=== PATIENT | male | born 1950 | race Caucasian/White ===

== ENCOUNTER 2020-02-15 17:09 | Outpatient (REF) | payer OTHER, SELFPAY ==
[2020-02-15 18:36] LABS: Hematocrit 42.5 % (42-52); Hemoglobin 14.5 g/dl (14.0-18.0)
[2020-02-15 19:26] LABS: Ferritin 357 ng/mL (20-250)
== END 2020-02-15 17:10 | disposition home or self-care (01) ==
LOC: HO.BBR 17:09
PROVIDERS: PCP Internal Medicine; Visit Provider Internal Medicine
DX: E83.110 Hereditary hemochromatosis (principal)
CPT/HCPCS: 36415; 82728; 85014; 85018; 99195

== ENCOUNTER 2020-03-21 17:05 | Outpatient (REF) | payer OTHER, SELFPAY | END 2020-03-21 17:06 | disposition home or self-care (01) | LOC: HO.BBR 17:05 | PROVIDERS: Visit Provider Internal Medicine | DX: Z13.89 Encounter for screening for other disorder (principal) ==

== ENCOUNTER 2020-03-21 18:06 | Outpatient (REF) | payer OTHER, SELFPAY ==
[2020-03-21 19:08] LABS: SARS COV2 IgG Negative (Negative)
== END 2020-03-21 18:07 | disposition home or self-care (01) ==
LOC: HO.LNC 18:06
PROVIDERS: Visit Provider Pathology Anatomic Pathology & Clinical Pathology
DX: Z20.828 Contact with and (suspected) exposure to other viral communicable diseases (principal)
CPT/HCPCS: 86769

== ENCOUNTER 2020-04-23 15:41 | Outpatient (REF) | payer OTHER, SELFPAY | END 2020-04-23 15:42 | disposition home or self-care (01) | LOC: HO.BBR 15:41 | PROVIDERS: Visit Provider Internal Medicine | DX: Z13.89 Encounter for screening for other disorder (principal) ==

== ENCOUNTER 2020-05-31 15:41 | Outpatient (REF) | payer OTHER, SELFPAY ==
[2020-05-31 16:56] LABS: Ferritin 207 ng/mL (20-250)
== END 2020-05-31 15:42 | disposition home or self-care (01) ==
LOC: HO.BBR 15:41
PROVIDERS: Visit Provider Internal Medicine
DX: E83.110 Hereditary hemochromatosis (principal)
CPT/HCPCS: 36415; 82728

== ENCOUNTER 2020-07-12 11:58 | Outpatient (REF) | payer OTHER, SELFPAY ==
[2020-07-12 14:10] LABS: Ferritin 228 ng/mL (20-250)
== END 2020-07-12 11:59 | disposition home or self-care (01) ==
LOC: HO.BBR 11:58
PROVIDERS: Visit Provider Internal Medicine
DX: E83.110 Hereditary hemochromatosis (principal)
CPT/HCPCS: 36415; 82728

== ENCOUNTER 2020-08-27 15:06 | Outpatient (REF) | payer OTHER, SELFPAY ==
[2020-08-27 17:06] LABS: Ferritin 158 ng/mL (20-250)
== END 2020-08-27 15:07 | disposition home or self-care (01) ==
LOC: HO.BBR 15:06
PROVIDERS: Visit Provider Internal Medicine
DX: E83.110 Hereditary hemochromatosis (principal)
CPT/HCPCS: 36415; 82728

== ENCOUNTER 2020-09-24 14:11 | Outpatient (REF) | payer OTHER, SELFPAY | END 2020-09-24 14:12 | disposition home or self-care (01) | LOC: HO.BBR 14:11 | PROVIDERS: Visit Provider Internal Medicine | DX: Z13.89 Encounter for screening for other disorder (principal) ==

== ENCOUNTER 2020-10-28 14:29 | Outpatient (REF) | payer OTHER, SELFPAY ==
[2020-10-28 16:17] LABS: Ferritin 96 ng/mL (20-250)
== END 2020-10-28 14:30 | disposition home or self-care (01) ==
LOC: HO.BBR 14:29
PROVIDERS: Visit Provider Internal Medicine
DX: E83.110 Hereditary hemochromatosis (principal)
CPT/HCPCS: 36415; 82728

== ENCOUNTER → 2020-11-18 08:11 | Outpatient (BNV) | payer OTHER, SELFPAY | PROVIDERS: PCP Internal Medicine; Visit Provider Internal Medicine | DX: E83.110 Hereditary hemochromatosis (principal) | CPT/HCPCS: 99213; 99214 ==

== ENCOUNTER 2020-11-28 10:36 | Outpatient (REF) | payer OTHER, SELFPAY | END 2020-11-28 10:37 | disposition home or self-care (01) | LOC: HO.BBR 10:36 | PROVIDERS: Visit Provider Internal Medicine | DX: Z13.89 Encounter for screening for other disorder (principal) ==

== ENCOUNTER 2020-12-31 15:15 | Outpatient (REF) | payer OTHER, SELFPAY | END 2020-12-31 15:16 | disposition home or self-care (01) | LOC: HO.BBR 15:15 | PROVIDERS: PCP Internal Medicine; Visit Provider Internal Medicine | DX: Z13.89 Encounter for screening for other disorder (principal) ==

== ENCOUNTER 2021-02-06 15:17 | Outpatient (REF) | payer OTHER, SELFPAY | END 2021-02-06 15:18 | disposition home or self-care (01) | LOC: HO.BBR 15:17 | PROVIDERS: Visit Provider Internal Medicine | DX: Z13.89 Encounter for screening for other disorder (principal) ==

== ENCOUNTER 2021-03-11 15:44 | Outpatient (REF) | payer OTHER, SELFPAY | END 2021-03-11 15:45 | disposition home or self-care (01) | LOC: HO.BBR 15:44 | PROVIDERS: Visit Provider Internal Medicine | DX: Z13.89 Encounter for screening for other disorder (principal) ==

== ENCOUNTER 2021-04-16 09:18 | Outpatient (REF) | payer OTHER, SELFPAY | END 2021-04-16 09:19 | disposition home or self-care (01) | LOC: HO.BBR 09:18 | PROVIDERS: Visit Provider Internal Medicine | DX: Z13.89 Encounter for screening for other disorder (principal) ==

== ENCOUNTER 2021-05-21 08:28 | Outpatient (REF) | payer OTHER, SELFPAY | END 2021-05-21 08:29 | disposition home or self-care (01) | LOC: HO.BBR 08:28 | PROVIDERS: Visit Provider Internal Medicine | DX: Z13.89 Encounter for screening for other disorder (principal) ==

== ENCOUNTER 2021-06-18 08:40 | Outpatient (REF) | payer OTHER, SELFPAY | END 2021-06-18 08:41 | disposition home or self-care (01) | LOC: HO.BBR 08:40 | PROVIDERS: Visit Provider Internal Medicine | DX: Z13.89 Encounter for screening for other disorder (principal) ==

== ENCOUNTER 2021-07-17 08:21 | Outpatient (REF) | payer OTHER, SELFPAY | END 2021-07-17 08:22 | disposition home or self-care (01) | LOC: HO.BBR 08:21 | PROVIDERS: Visit Provider Internal Medicine | DX: Z13.89 Encounter for screening for other disorder (principal) ==

== ENCOUNTER 2021-08-19 08:54 | Outpatient (REF) | payer OTHER, SELFPAY | END 2021-08-19 08:55 | disposition home or self-care (01) | LOC: HO.BBR 08:54 | PROVIDERS: Visit Provider Internal Medicine | DX: Z13.89 Encounter for screening for other disorder (principal) ==

== ENCOUNTER 2021-09-16 09:15 | Outpatient (REF) | payer OTHER, SELFPAY | END 2021-09-16 09:16 | disposition home or self-care (01) | LOC: HO.BBR 09:15 | PROVIDERS: Visit Provider Internal Medicine | DX: Z13.89 Encounter for screening for other disorder (principal) ==

== ENCOUNTER 2021-10-14 09:12 | Outpatient (REF) | payer OTHER, SELFPAY | END 2021-10-14 09:13 | disposition home or self-care (01) | LOC: HO.BBR 09:12 | PROVIDERS: Visit Provider Internal Medicine | DX: Z13.89 Encounter for screening for other disorder (principal) ==

== ENCOUNTER 2022-02-10 10:06 | Outpatient (REF) | payer OTHER, SELFPAY | END 2022-02-10 10:07 | disposition home or self-care (01) | LOC: HO.BBR 10:06 | PROVIDERS: Visit Provider Internal Medicine | DX: Z13.89 Encounter for screening for other disorder (principal) ==

== ENCOUNTER 2022-05-15 09:35 | Outpatient (REF) | payer OTHER, SELFPAY | END 2022-05-15 09:36 | disposition home or self-care (01) | LOC: HO.BBR 09:35 | PROVIDERS: Visit Provider Internal Medicine | DX: Z13.89 Encounter for screening for other disorder (principal) ==

== ENCOUNTER 2022-12-09 12:09 | Outpatient (REF) | payer OTHER, SELFPAY | END 2022-12-09 12:10 | disposition home or self-care (01) | LOC: HO.BBR 12:09 | PROVIDERS: PCP Internal Medicine; Visit Provider Internal Medicine | DX: Z13.89 Encounter for screening for other disorder (principal) ==

== ENCOUNTER 2023-01-20 10:19 | Outpatient (REF) | payer OTHER, SELFPAY | END 2023-01-20 10:20 | disposition home or self-care (01) | LOC: HO.BBR 10:19 | PROVIDERS: PCP Internal Medicine; Visit Provider Internal Medicine | DX: Z13.89 Encounter for screening for other disorder (principal) ==

== ENCOUNTER 2023-03-03 10:26 | Outpatient (REF) | payer OTHER, SELFPAY | END 2023-03-03 10:27 | disposition home or self-care (01) | LOC: HO.BBR 10:26 | PROVIDERS: PCP Internal Medicine; Visit Provider Internal Medicine | DX: Z13.89 Encounter for screening for other disorder (principal) ==

== ENCOUNTER 2023-04-28 11:04 | Outpatient (REF) | payer OTHER, SELFPAY | END 2023-04-28 11:05 | disposition home or self-care (01) | LOC: HO.BBR 11:04 | PROVIDERS: PCP Internal Medicine; Visit Provider Internal Medicine | DX: Z13.89 Encounter for screening for other disorder (principal) ==

== ENCOUNTER 2023-08-05 09:04 | Outpatient (REF) | payer OTHER, SELFPAY | END 2023-08-05 09:05 | disposition home or self-care (01) | LOC: HO.BBR 09:04 | PROVIDERS: PCP Internal Medicine; Visit Provider Internal Medicine | DX: Z13.89 Encounter for screening for other disorder (principal) ==

== ENCOUNTER 2023-11-04 09:13 | Outpatient (REF) | payer OTHER, MEDICARE, SELFPAY | END 2023-11-04 09:14 | disposition home or self-care (01) | LOC: HO.BBR 09:13 | PROVIDERS: PCP Internal Medicine; Visit Provider Internal Medicine | DX: Z13.89 Encounter for screening for other disorder (principal) ==

== ENCOUNTER 2024-02-04 10:49 | Outpatient (REF) | payer MEDICARE, OTHER, SELFPAY | END 2024-02-04 10:50 | disposition home or self-care (01) | LOC: HO.BBR 10:49 | PROVIDERS: PCP Internal Medicine; Visit Provider Internal Medicine | DX: Z13.89 Encounter for screening for other disorder (principal) ==

== ENCOUNTER 2024-05-10 10:05 | Outpatient (REF) | payer OTHER, MEDICARE, SELFPAY ==
--- OUTSIDE RECORDS SUMMARY | 2024-05-10 11:03 | XMS_ITS | Clinical Summary ---
Author Organization [facility] [employer] [facility] Address [address] [facility] [place] [address] Care Team Providers Care Lavatory Attendant Name Role Phone Unavailable Primary Care Provider Unavailabl e Social History Tobacco Use Types Packs/Day Years Used Date Smoking Tobacco: Never Assessed Sex and Gender Information Value Date Recorded Sex Assigned at Not on file Legal Sex Male 9:32 AM EST Gender Identity Not on file Sexual Orientation Not on file Plan of Treatment Health Maintenance Due Date Last Done Comments Colorectal Cancer: COLONOSCO PY Screening every 10 yrs (or Modifier) 1950 Depression: Screening Annual ly using PHQ-2/9 in Adults 18 yrs or above (or HM Modifier)([facility]) 02/20/1970 Hepatitis C Virus Infection in Adolescents and Adults: Screening (or Modifier) ([facility]) 02/20/1970 [facility] Screening Reminder: Edna clark for all adults ([facility]) 02/20/1970 Tobacco Smoking Cessation: i n Adults excluding Women: Behavioral and Pharmacotherapy Interventions ([facility]) 02/20/1970 DTaP/Tdap/Td Vaccines ([facility]) (1 - Tdap) 02/20/1971 Lipid Screening: Every 5 yrs for Men aged 35+ (or HM Modifier) ([facility]) 1988 Colorectal Cancer Screening 45 -75 Yrs (or HM Modifier ) 02/20/1997 Colorectal Cancer: FLEXIBLE SIGMOIDOSCOPY Screening every 5 yrs 02/20/1997 Colorectal Cancer: Fecal Imm unochemical Test (FIT) Annually [facility] 02/20/1997 Colorectal Cancer: High-sens itivity gFOBT Screening Annually [facility] 02/20/1997 Colorectal Cancer: Stool Col oguard Screening every 3 yrs 02/20/1997 Colorectal Cancer:CT Colonography Screening every 5 yr s 02/20/1997 Zoster/Shingles Vaccine Seri es Screening: Adults aged 18+ yrs (or HM Modifiers)([facility]) (1 of 2) 02/20/2002 RSV Vaccines (1 - 1-dose 60+ series) 2012 Pneumococcal Vaccination Scr eening: Patients 65+ yrs of age ([facility]) (1 of 1 - PCV) 02/20/2017 Flu Vaccination: Ages 65+: Y early High Dose Recommended (or Modifier)([facility]) 11/18/2023 COVID-19 Vaccine Screening: Initial Series and Booster Status ([facility]) (2023- season) 2023 [employer] Not on file Insurance [facility]
--- OUTSIDE RECORDS SUMMARY | 2024-05-10 11:03 | XMS_ITS | Clinical Summary ---
Author Organization [address] Building Address [address] [place] [address] [place] Phone Care Team Providers Care Biodiesel Operations Manager Name Role Phone Colin Christianson MD Primary Care Provider Allergies No known active allergies Medications Medication Sig Dispensed Refills Start Date End Date Status lisinopriL (PRINIVIL,ZESTRIL) 20 mg tabletIndications:Esse ntial (primary) hypertension TAKE 1 TABLET BY MOUTH EVERY DAY 90 tablet 1 02/28/2024 Active Active Problems Problem Noted Date Diagnosed Date Detached retina, right 10/13/2018 Overview (04/01/2024): August 2018; left 20 years prior [facility] Essential hypertension 01/06/2017 Hemochromatosis 03/20/2015 Insomnia 02/06/2013 Encounters Date Type Department Care Team Description 02/17/2024 [facility] [address] [facility] [place], [place] [phone] Tran Abebe [place] Forms/questionnaires (Conversion-My Chart Message, exercise form) from Last 3 Months Immunizations Name Administration Dates Next Due Influenza Quadravalent, MDCK , 0.5ml, with preservative (Flucelvax) 6mo and older 01/20/2017 Influenza trivalent, 0.5mL ( Fluad) 65yo and older 02/15/2024,01/06/2021 Influenza trivalent, 0.5mL, preservative free (Fluarix; FluLaval; Fluzone) ages 6mo and older (Afluria) 3 years and older 03/20/2015,02/06/2013 Influenza, Unspecified 03/19/2022 Pfizer SARS-CoV-2 COVID-19, mRNA, LNP-S, preservative free 02/10/2021,07/16/2020,06/25/2020 Pneumococcal conjugate 20 va lent (Prevnar 20, PCV 20) 2mo and older 07/14/2022 Td Tetanus diptheria (Tdvax) 7yo and older 02/14 Tdap Tetanus diptheria acell ular pertussis (Boostrix; Adacel) 7yo and older 08/09/2013 Surgical History Surgery Date Site/Laterality Comments TONSILLECTOMY PROCEDURE: HISTORICAL TONSILLECTOMY OTHER SURGICAL HISTORY PROCEDURE: REPAIR DETACHED RETINA Medical History Medical History Date Comments Detached retina, right 10/13/2018 DX:Detach ed retina, right; COMMENT: August 2018; left 20 years prior [facility] Essential hypertension 01/06/2017 DX:Essent ial hypertension Hemochromatosis 03/20/2015 DX:Hemochromatos is Insomnia 02/06/2013 DX:Insomnia Family History Medical History Relation Name Comments Stroke Brother Other: Other Father seizures after 70. dementia Mental illness Mother depression. d ementia Relation Name Status Comments Brother Alive Father Mother Sister 1 Alive Sister 2 Alive Son 1 Alive Son 2 Alive Social History Tobacco Use Types Packs/Day Years Used Date Smoking Tobacco: Never Smokeless Tobacco: Never Alcohol Use Standard Drinks/Week Comments Yes 0 (1 standard drink = 0.6 oz pur e alcohol) Sex and Gender Information Value Date Recorded Sex Assigned at Not on file Gender Identity Not on file Sexual Orientation Not on file Job Start Date Occupation Industry Not on file Not on file Not on file Obstetrics History Last Filed Vital Signs Vital Sign Reading Time Taken Comments Blood Pressure 138/82 02/15/2024 9:36 AM EDT Pulse 72 02/15/2024 9:36 AM EDT Temperature - - Respiratory Rate - - Oxygen Saturation - - Inhaled Oxygen Concentration - - Weight 88.7 kg (195 lb 8 oz) 02/15/2024 9:36 AM EDT Height 177.8 cm (5' 10 ) 02/15/2024 9:36 AM EDT Body Mass Index 28.05 02/15/2024 9:36 AM EDT Plan of Treatment Upcoming Encounters Date Type Department Care Team (Late st Contact Info) Description 08/15/2024 11:30 AM EDT Office Visit Internal Medicine - [address] [phone] Colin Christianson MD [address] [place] [id number] Health Maintenance Due Date Last Done Comments Zoster Vaccines (1 of 2) 02/20/2002 Depression Screening 03/28/2022 Falls Risk Assessment 03/28/2022 Hepatitis C Screening 03/28/2022 Medicare Annual Wellness Visit 03/28/2022 Social Influencers of Health Screening 03/28/2022 COVID-19 Vaccine ( season) 2023 02/10/2021, 07/16/2020, 06/25/2020 Hypertension/CHF/CAD Annual BMP Blood Test 02/14/2025 02/15/2024 Colorectal Cancer Screening: Colonoscopy 05/14/2025 05/12/2022 RSV Immunization Patients 60+ Years Old (1 - 1-dose 75+ series) 02/20/2027 Cholesterol Screening (Lipid Panel) 02/14/2029 02/15/2024 DTaP,Tdap,and Td Vaccines (3 - Td or Tdap) 02/14/2034 02/15/2024, 08/09/2013 Pneumococcal Vaccine: 65+ Years Completed 07/14/2022 Influenza Vaccine Completed 02/15/2024, , 01/06/2021, Additional history exists HIB Vaccines Aged Out No longer eligi ble based on patient's age to complete this topic HPV Vaccines Aged Out No longer eligi ble based on patient's age to complete this topic Hepatitis A Vaccines Aged Out No long er eligible based on patient's age to complete this topic Hepatitis B Vaccines Aged Out No long er eligible based on patient's age to complete this topic IPV Vaccines Aged Out No longer eligi ble based on patient's age to complete this topic MMR Vaccines Aged Out No longer eligi ble based on patient's age to complete this topic Meningococcal ACWY Vaccine Aged Out N o longer eligible based on patient's age to complete this topic RSV Immunization Patients Under 20 months Aged Out No longer eligible based on patient's age to complete this topic Varicella Vaccines Aged Out No longer eligible based on patient's age to complete this topic Care Teams Biodiesel Operations Manager Relationship Specialty Start Date End Date Colin Christianson MD PCP - General Internal Medicine 04/20/24
== END 2024-05-10 10:06 | disposition home or self-care (01) ==
LOC: HO.BBR 10:05
PROVIDERS: PCP Internal Medicine; Visit Provider Internal Medicine
DX: Z13.89 Encounter for screening for other disorder (principal)

== ENCOUNTER 2024-08-16 09:11 | Outpatient (REF) | payer OTHER, MEDICARE, SELFPAY ==
--- OUTSIDE RECORDS SUMMARY | 2024-08-16 09:42 | XMS_ITS | Clinical Summary ---
Author Organization [address] Building Address [address] [place] [address] [place] [phone] Phone Care Team Providers Care Assurance Manager Insurance Name Role Phone Colin Christianson MD Primary Care Provider [phone] Allergies No known active allergies Medications lisinopriL (PRINIVIL,ZESTRIL ) 20 mg tabletIndications :Essential (primary) hypertension TAKE 1 TABLET BY MOUTH EVERY DAY 90 tablet 1 02/28/2024 Active Active Problems Problem Noted Date Diagnosed Date Detached retina, right 10/13/2018 Overview (04/01/2024): August 2018; left 20 years prior [facility] Essential hypertension 01/06/2017 Hemochromatosis 03/20/2015 Insomnia 02/06/2013 Encounters Date Type Department Care Team Description 08/15/2024 11:30 AM EDT Office Visit Internal Medicine - [facility] [address] [place] [phone] Colin Christianson MD Hearing loss of left ear, unspecified hearing loss type (Primary Dx); Stiffness of hip joint, unspecified laterality; Essential hypertension; Screening PSA (prostate specific antigen) from Last 3 Months Immunizations Name Administration [...] COMMENT: August 2018; left 20 years prior [facility] Essential hypertension 01/06/2017 DX:Essent ial [...] Date Smoking Tobacco: Never Smokeless Tobacco: Never Tobacco Cessation:Counseling Given: Not Answered Alcohol Use Standard Drinks/Week Comments Yes 0 (1 standard drink = 0.6 oz pur e alcohol) Housing Instability Answer Date Recorde d Are you worried that in the next 2 months you may not have stable housing? No 08/15/2024 Food Access & Nutrition Answer Date Rec orded Do you have access to a vari ety of food including fruits and vegetables? Yes 08/15/2024 Access to Healthcare Answer Date Record ed Within the last 3 months, ho w many times did you visit the emergency department for your medical care? 0 08/15/2024 Health Literacy Answer Date Recorded How often do you need to hav e someone help you when you read instructions, pamphlets, or other written material from your doctor or pharmacy? Never 08/15/2024 Caregiver: How often do you need to have someone help you when you read instructions, pamphlets, or other written material from your doctor or pharmacy? Not on file 08/15/2024 Financial Risk Answer Date Recorded How hard is it for you to pa y for the very basics like food, housing, medical care, and air conditioning / heating? Not very hard 08/15/2024 Transportation Answer Date Recorded Has the lack of transportati on kept you from meetings, work, or from getting things needed for daily living? No Has the lack of transportati on kept you from medical appointments or from getting medications? No 08/15/2024 Social Isolation Answer Date Recorded How often do you feel lonely or isolated from th ose around you? Rarely 08/15/2024 Food Risk Answer Date Recorded Within the past 12 months we worried whether our food would run out before we got money to buy more. Never true 08/15/2024 Within the past 12 months th e food we bought just didn't last and we didn't have money to get more. Never true 08/15/2024 Dependent Care Answer Date Recorded Do you need help finding or paying for care for your loved ones. For example, early childhood worker or elderly care for an older adult? No 08/15/2024 Education Answer Date Recorded Do you think completing more education or training, like finishing a GED, going to college, or learning a trade, would be helpful for you? N/A 08/15/2024 Employment and Income Answer Date Recor ded During the last four weeks, have you been actively looking for work? No 08/15/2024 Living Situation Answer Date Recorded What is your living situation? 0 08/15/2024 Sex and Gender Information Value Date Recorded Sex Assigned at Not on file Legal Sex Male 12:08 PM EST Gender Identity Not on file Sexual Orientation Not on file Obstetrics History Last Filed Vital Signs Vital Sign Reading Time Taken Comments Blood Pressure 142/78 08/15/2024 11:23 AM EDT Pulse 68 08/15/2024 11:23 AM EDT Temperature - - Respiratory Rate - - Oxygen Saturation - - Inhaled Oxygen Concentration - - Weight 88.9 kg (195 lb 14.4 oz) 025 11:23 AM EDT Height 177.8 cm (5' 10 ) 08/15/2024 11: 23 AM EDT Body Mass Index 28.11 08/15/2024 11:23 AM EDT Plan of Treatment Upcoming Encounters Date Type Department Care Team (Late st Contact Info) Description 08/17/2025 11:30 AM EDT Office Visit Internal Medicine - [address] [phone] Colin Christianson MD [address] [place] [phone] Health Maintenance Due Date Last Done Comments Hepatitis C Screening 03/28/2022 COVID-19 Vaccine ( season) 2023 04/17/2023, 11/10/2021, 02/10/2021, Additional history exists Colorectal Cancer Screening: Colonoscopy 05/14/2025 05/12/2022 Depression Screening 08/15/2025 08/15/2024 Falls Risk Assessment 08/15/2025 08/15/2024 Hypertension/CHF/CAD Annual BMP Blood Test 08/15/2025 08/15/2024, 02/15/2024 Medicare Annual Wellness Visit 08/15/2025 08/15/2024 Social Influencers of Health Screening 08/15/2025 08/15/2024 Cholesterol Screening (Lipid Panel) 08/15/2029 08/15/2024, 02/15/2024 DTaP,Tdap,and Td Vaccines (3 - Td or Tdap) 02/14/2034 02/15/2024, 08/09/2013 Pneumococcal Vaccine: 50+ Years Completed 07/14/2022 RSV Immunization Adult Patients Completed 04/17/2023 Zoster Vaccines Completed 11/17/2023, 08/20/2023 Influenza Vaccine Completed 02/15/2024, , 03/19/2022, Additional history exists HIB Vaccines Aged Out [...] patient's age to complete this topic Meningococcal B Vaccine Aged Out No l onger eligible based on patient's age to complete this topic RSV Immunization Patients Under 20 months Aged Out No longer eligible based on patient's age to complete this topic Varicella Vaccines Aged Out No longer eligible based on patient's age to complete this topic Procedures Procedure Name Priority Date/Time Associated Diagnosis Comments LIPID PANEL WITH REFLEX TO DIRECT LDL Routine 08/15/2024 12:10 PM EDT Essential hypertension ALANINE AMINOTRANSFERASE Routine 12:10 PM EDT Essential hypertension ASPARTATE AMINOTRANSFERASE Routine 08/15/2024 12:10 PM EDT Essential hypertension BASIC METABOLIC PANEL Routine 08/15/2024 12:10 PM EDT Essential hypertension from Last 3 Months Results * Lipid panel with reflex to direct LDL (08/15/2024 12:10 PM EDT) Cholesterol 134 0 - 200 mg/dL LAB CHEMISTRY METHOD 08/15/2024 2:54 PM EDT [facility] Triglycerides 93 0 - 150 mg/dL LAB CHEMISTRY METHOD 08/15/2024 2:54 PM EDT [facility] HDL 50 >=40 mg/dL LAB CHEMISTRY METHOD 08/15/2024 2:54 PM EDT [facility] LDL Calculated 65 0 - 100 mg/dL LAB CHEMISTRY METHOD 08/15/2024 2:54 PM EDT [facility] VLDL Cholesterol Naeem 18.6 mg/dL LAB CHEMISTRY METHOD 08/15/2024 2:54 PM EDT [facility] Non HDL Chol. (LDL+VLDL) 84 <145 mg/dL LAB CHEMISTRY METHOD 08/15/2024 2:54 PM EDT [facility] Chol/HDL Ratio 2.7 0.0 - 4.4 LAB CHEMISTRY METHOD 08/15/2024 2:54 PM EDT [facility] Blood Venous blood specimen / Unknown Venipuncture / Unknown 08/15/2024 12:10 PM EDT 08/15/2024 12:10 PM EDT Colin Christianson MD LAB BLOOD ORDERABLES Final Res ult Performing Organization Address [facility]/ZIP Co de Phone Number [facility] [address] [place] [address], [place] [phone] * Alanine aminotransferase (08/15/2024 12:10 PM EDT) ALT (SGPT) 27 10 - 60 unit/L LAB CHEMISTRY METHOD 08/15/2024 2:54 PM EDT [facility] Blood Venous blood specimen / Unknown Venipuncture / Unknown 08/15/2024 12:10 PM EDT 08/15/2024 12:10 PM EDT Colin Christianson MD LAB BLOOD ORDERABLES Final Res ult [facility] [address] [place] [address], [place] [phone] * Aspartate aminotransferase (08/15/2024 12:10 PM EDT) AST (SGOT) 16 10 - 42 unit/L LAB CHEMISTRY METHOD 08/15/2024 2:16 PM EDT [facility] Blood Venous blood specimen / Unknown Venipuncture / Unknown 08/15/2024 12:10 PM EDT 08/15/2024 12:10 PM EDT us Colin Christianson MD LAB BLOOD ORDERABLES Final Res ult [facility] [address] [place] [address], [place] [phone] * Basic metabolic panel (08/15/2024 12:10 PM EDT) Sodium 142 133 - 145 mmol/L LAB CHEMISTRY METHOD 08/15/2024 2:54 PM EDT [facility] Potassium 4.3 3.5 - 5.5 mmol/L LAB CHEMISTRY METHOD 08/15/2024 2:54 PM EDT [facility] Chloride 104 96 - 110 mmol/L LAB CHEMISTRY METHOD 08/15/2024 2:54 PM [facility] CO2 30 21 - 32 mmol/L LAB CHEMISTRY METHOD 08/15/2024 2:54 PM T [facility] Anion Gap 8 3 - 11 LAB CHEMISTRY METHOD 08/15/2024 2:54 PM [facility] Glucose 75 70 - 100 mg/dL LAB CHEMISTRY METHOD 08/15/2024 2:54 PM [facility] BUN 20 5 - 25 mg/dL LAB CHEMISTRY METHOD 08/15/2024 2:54 PM [facility] Creatinine 0.87 0.70 - 1.30 mg/dL LAB CHEMISTRY METHOD 08/15/2024 2:54 PM [facility] eGFR 92 >=60 mL/min/1. 73m2 LAB CHEMISTRY METHOD 08/15/2024 2:54 PM T [facility] Comment:Calculation based on the??Chronic Kidney Disease Epidemiology Collaboration (CKD-EPI) equation refit??without adjustment for race. BUN/Creatinine Ratio 23.0 LAB CHEMISTRY METHOD 08/15/2024 2:54 PM T [facility] Calcium 9.8 8.5 - 10.5 mg/dL LAB CHEMISTRY METHOD 08/15/2024 2:54 PM EDT [facility] Blood Venous blood specimen / Unknown Venipuncture / Unknown 08/15/2024 12:10 PM EDT 08/15/2024 12:10 PM EDT us Colin Christianson MD LAB BLOOD ORDERABLES Final Res ult [facility] [address] [place] [address], [place] [phone] from Last 3 Months Insurance MEDICARE [facility] Care Teams Assurance Manager Insurance Relationship Specialty Start Date End Date Colin Christianson MD [address] [place] [phone] PCP - General Internal Medicine 04/20/24
--- OUTSIDE RECORDS SUMMARY | 2024-08-16 09:42 | XMS_ITS | Encounter Summary ---
Author [place] [address] Care Team Providers Care Accounts Receivable Collector Name Role Phone Colin Christianson MD Primary Care Provider [phone] Reason for Referral * Consultation (Routine) - Authorized Specialty Diagnoses / Procedures Referred By Christopher olivera Referred To Contact Physical Therapy Diagnoses Stiffness of hip joint, unspecified laterality Colin Christianson MD [address] [place] [address] Phone: tel: fax: Referral ID Status Reason Start Date Expiration Date Visits Requested Visits Authorized [id number] Authorized Specialty Services Required 08/15/2024 08/15/2025 1 1 * Consultation (Routine) - Closed Specialty Diagnoses / Procedures Referred By Christopher olivera Referred To Contact Audiology Diagnoses Hearing loss of left ear, unspecified hearing loss type Colin Christianson MD [address] [place] [phone] Phone: tel: fax: [facility] [address] [facility], [address] [place], [place] Phone: tel: Referral ID Status Reason Start Date Expiration Date V isits Requested Visits Authorized [id number] Closed Specialty Services Required 08/15/2024 08/15/2025 1 1 Reason for Visit * Reason Comments Medicare Annual Wellness Visit Initial a wv Encounter Details Date Type Department Care Team (Late st Contact Info) Description 08/15/2024 11:30 AM EDT Office Visit Internal Medicine - [address] [phone] Colin Christianson MD [address] [place] [id number] Hearing loss of left ear, unspecified hearing loss type (Primary Dx); Stiffness of hip joint, unspecified laterality; Essential hypertension; Screening PSA (prostate specific antigen) Social History Tobacco Use Types Packs/Day Years [...] care for your loved ones. For example, child care associate or elderly care for an older adult? [...] on file Sexual Orientation Not on file documented as of this encounter Last Filed Vital Signs Vital Sign Reading [...] Mass Index 28.11 08/15/2024 11:23 AM EDT documented in this encounter Progress Notes * Colin Christianson MD - 08/15/2024 11:30 AM EDT Medicare Annual Wellness Visit Note Patient Name: Jack Rushing Date of : 1950 Race: White Ethnicity: Not Hispan/Lat Date of Service: 08/15/2024 Jack is a 74 y.o. male presenting for Medicare Annual Wellness Visit Initial (awv) History of Present Illness he patient presents for evaluation of hearing loss, blood pressure management, neck stiffness, hamstring tightness, and sleep disturbance. A history of hearing impairment is noted, attributed to frequent exposure to loud rock concerts during his youth. Recently, an exacerbation of this condition has been observed, particularly in the left ear. Persistent tinnitus is reported, although hearing remains generally adequate unless there issignificant ambient noise. A complimentary hearing test was conducted at [facility]. Blood pressure readings have been within normal limits today, although home monitoring is not performed. Neck stiffness continues to be an issue, for which chiropractic treatment is sought. Hamstring tightness is reported, believed to be related to prolonged sitting in a recliner. 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 Interest in a referral to physical therapy is expressed. Changes in sleep patterns are acknowledged, attributed to aging and lifestyle factors. 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 Comprehensive Medical and Social History: Patient Active Problem List Diagnosis Detached retina, right Essential hypertension Hemochromatosis Insomnia No Known Allergies Current Outpatient Medications Medication Sig Dispense Refill lisinopriL (PRINIVIL,ZESTRIL) 20 mg tablet TAKE 1 TABLET BY MOUTH EVERY DAY 90 tablet 1 No current facility-administered medications for this visit. Past Medical History: Diagnosis Date Detached retina, right 10/13/2018 DX:Detached retina, right; COMMENT: August 2018; left 20 years prior [facility] Essential hypertension 01/06/2017 DX:Essential hypertension Hemochromatosis 03/20/2015 DX:Hemochromatosis Insomnia 02/06/2013 DX:Insomnia Past Surgical History: Procedure Laterality Date OTHER SURGICAL HISTORY PROCEDURE: REPAIR DETACHED RETINA TONSILLECTOMY PROCEDURE: HISTORICAL TONSILLECTOMY Social History Socioeconomic History Marital status: Spouse name: None Number of children: None Years of education: None Highest education level: None Occupational History None Tobacco Use Smoking status: Never Smokeless tobacco: Never Substance and Sexual Activity Alcohol use: Yes Drug use: No Sexual activity: None Other Topics Concern None Social History Narrative None Family History Problem Relation Name Age of Onset Stroke Brother 50.00 Mental illness Mother depression. dementia Other (Other: Other) Father seizures after 70. dementia Immunizations: Immunization History Administered Date(s) Administered COVID-19 (Moderna/Spikevax) 12yo and older 04/17/2023 Influenza Quadravalent, MDCK, 0.5ml, with preservative (Flucelvax) 6mo and older 01/20/2017 Influenza trivalent, 0.5mL (Fluad) 65yo and older 01/06/2021, 02/15/2024 Influenza trivalent, 0.5mL, preservative free (Fluarix; FluLaval; Fluzone) ages 6mo and older (Afluria) 3 years and older 02/06/2013, 03/20/2015 Influenza, Unspecified 03/19/2022 Pfizer (ages 12 & older) SARS-CoV-2 COVID-19, mRNA, LNP-S, tucker-sucrose, preservative free 11/10/2021 Pfizer SARS-CoV-2 COVID-19, mRNA, LNP-S, preservative free 06/25/2020, 07/16/2020, 02/10/2021 Pneumococcal conjugate 20 valent (Prevnar 20, PCV 20) 2mo and older 07/14/2022 Td Tetanus diptheria (Tdvax) 7yo and older 02/15/2024 Tdap Tetanus diptheria acellular pertussis (Boostrix; Adacel) 7yo and older 08/09/2013 Hospitalization in the last year: Has not been hospitalized in last year Current Providers and Suppliers: Patient Care Team: Colin Christianson MD as PCP - General (Internal Medicine) Patient does not have/use current medical supplier Risk Assessments: Cognitive Function Assessment Mini-Cognitive screening performed, results reviewed Clock Drawing Test: Normal Word Recall: Three Words Mini Cog Score: 5 Mini Cog Results: Negative screen for dementia Depression Screening (PHQ2/9): Depression Screening Over the last 2 weeks, how often have you been bothered by little interest or pleasure in doing things?: (Patient-Rptd) (P) Not at all Over the last 2 weeks, how often have you been bothered by feeling down, depressed, or hopeless?: (Patient-Rptd) (P) Not at all Depression Risk: (Patient-Rptd) (P) 0 PHQ9 Full Set of Questions Over the last 2 weeks, how often have you been bothered by little interest or pleasure in doing things?: (Patient-Rptd) (P) Not at all Over the last 2 weeks, how often have you been bothered by feeling down, depressed, or hopeless?: (Patient-Rptd) (P) Not at all Depression Risk Score NEW: (Patient-Rptd) (P) 0 Pain: Pain Medications: Patient does not take any opioid medications BMI: Body mass index is 28.11 kg/m??. The BMI is above average. The patient received exercise education because they have an above normal BMI. Functional Ability and Level of Safety Review Health Status: No data recorded Activity of Daily Living (ADLs): No data recorded Instrumental Activities of Daily Living (IADLs): No data recorded Physical Activity: No data recorded Nutritional Assessment: No data recorded Social Influencer of Health (SIOH): Social Influencers of Health Within the past 12 months we worried whether our food would run out before we got money to buy more.: (Patient-Rptd) Never true Within the past 12 months the food we bought just didn't last and we didn't have money to get more.: (Patient-Rptd) Never true How hard is it for you to pay for the very basics like food, housing, medical care, and air conditioning / heating?: (Patient-Rptd) Not very hard Are you worried that in the next 2 months you may not have stable housing?: (Patient-Rptd) No Do you have access to a variety of food including fruits and vegetables?: (Patient-Rptd) Yes Within the last 3 months, how many times did you visit the emergency department for your medical care?: (Patient-Rptd) 0 Has the lack of transportation kept you from meetings, work, or from getting things needed for daily living?: (Patient-Rptd) No Has the lack of transportation kept you from medical appointments or from getting medications?: (Patient-Rptd) No How often do you feel lonely or isolated from those around you?: (Patient-Rptd) Rarely How often do you need to have someone help you when you read instructions, pamphlets, or other written material from your doctor or pharmacy?: (Patient- Rptd) Never Fall Risk: Have you fallen in the past year? no. Are you worried about falling? no. . Hearing: No data recorded Vision Screening: Required for Medicare Initial Preventative Physical Exam (IPPE) No data recorded Additional Screenings if indicated: Review of Systems Review of Systems See hpi Objective BP (!) 142/78 Pulse 68 Ht 1.778 m (70 ) Wt 88.9 kg (195 lb 14.4 oz) BMI 28.11 kg/m?? Physical Exam Neck is supple PERRLA EOMI Clear no rales S1-S2 regular with a rate Abdomen soft nontender Motor sensor intact ASSESSMENT AND PLAN: Patient presented today for an Subsequent Medicare Wellness Visit with management of chronic condition(s). ASSESSMENT AND PLAN - Colonoscopy, mammogram, bone density maintenance reviewed with patient. - Covid/pneumonia/influenza/shingles vaccine reviewed and discussed with patient. Pt is uptodate. Pt has received the COVID 19 vaccine and booster - Pt did not express any significant concerns at this time. - Advised to follow up routinely for continued monitoring of chronic medical problems and preventive care BMI SCREENING REVIEWED: The patient is overweight. Approaches towards weight loss are encouraged, including burning more calories than one takes in by strength training exercise. DEPRESSION SCREENING REVIEWED: Clinical Depression Screening was performed and patient is negative for significant depression. No alarming signs; interacting appropriattely; good eye contact. FUNCTIONAL ASSESSMENT (ADL/I-ADL) SCREENING REVIEWED: Functional Assessment: functional ability hasremained stable. No immediate concerns. FALL RISK SCREENING REVIEWED: Future Fall Risk Screening: patient is NEGATIVE for future fall risk (no falls in the past 6 months). HOME SAFETY REVIEWED: Home accomodations discussed if indicated. Otherwise, Home Safety screen unremarkable. COGNITIVE SCREENING REVIEWED: No evidence of significant cognitive impairment. Answering questions appropriattely, no gross acute neuro deficits or concerns. PAIN ASSESSMENT REVIEWED: Chronic Pain adequately controlled. ADVANCE DIRECTIVES REVIEWED: TBD Decreased hearing referral to audiology placed Bilateral hip stiffness referral to physical therapy placed Hypertension stable continue lisinopril 20 mg update electrolytes renal function I have maintained a long-term, longitudinal relationship with this patient, overseeing care of chronic conditions including hypertension hip stiffness hearing loss. This care relationship has significantly influenced my decision making and treatment plans during today's encounter. Colin Christianson MD INTERNAL MEDICINE - [address] [address] Dept: [phone] Dept documented in this encounter Plan of Treatment Upcoming Encounters Date Type Department Care Team (Late st Contact Info) Description 08/17/2025 11:30 AM EDT Office Visit Internal Medicine - [address] [phone] Colin Christianson MD [address] [place] [address] Pending Results Name Type Priority Associated Diagnoses Date /Time Prostate specific antigen screen Lab Routine Essential hypertension Screening PSA (prostate specific antigen) 08/15/2024 12:10 PM EDT Scheduled Orders Name Type Priority Associated Diagnoses Orde r Schedule Prostate specific antigen screen Lab Routine Essential hypertension Screening PSA (prostate specific antigen) 1 Occurrences starting 08/15/2024 until 08/15/2025 Scheduled Referrals Name Type Priority Associated Diagnoses Order Schedule Ambulatory referral to Audiology Outpatient Referral Routine Hearing loss of left ear, unspecified hearing loss type 1 Occurrences starting 08/15/2024 until 08/15/2025 Ambulatory referral to Physical Therapy and Athletic Training Outpatient Referral Routine Stiffness of hip joint, unspecified laterality 1 Occurrences starting 08/15/2024 until 08/15/2025 documented as of this encounter Results * Lipid panel with reflex to direct LDL (08/15/2024 12:10 PM EDT) Cholesterol 134 0 - 200 mg/dL LAB CHEMISTRY METHOD 08/15/2024 2:54 PM EDT [facility] Triglycerides 93 0 - 150 mg/dL LAB CHEMISTRY METHOD 08/15/2024 2:54 PM EDT [facility] HDL 50 >=40 mg/dL LAB CHEMISTRY METHOD 08/15/2024 2:54 PM EDT [facility] LDL Calculated 65 0 - 100 mg/dL LAB CHEMISTRY METHOD 08/15/2024 2:54 PM EDT [facility] VLDL Cholesterol Naeem 18.6 mg/dL LAB CHEMISTRY METHOD 08/15/2024 2:54 PM EDT [facility] Non HDL Chol. (LDL+VLDL) 84 <145 mg/dL LAB CHEMISTRY METHOD 08/15/2024 2:54 PM EDT [facility] Chol/HDL Ratio 2.7 0.0 - 4.4 LAB CHEMISTRY METHOD 08/15/2024 2:54 PM EDT [facility] Blood Venous blood specimen / Unknown Venipuncture / Unknown 08/15/2024 12:10 PM EDT 08/15/2024 12:10 PM EDT us Colin Christianson MD LAB BLOOD ORDERABLES Final Res ult [facility] [address] [place] [address], [place] [phone] * Basic metabolic panel (08/15/2024 12:10 PM EDT) Sodium 142 133 - 145 mmol/L LAB CHEMISTRY METHOD 08/15/2024 2:54 PM [facility] Potassium 4.3 3.5 - 5.5 mmol/L LAB CHEMISTRY METHOD 08/15/2024 2:54 PM [facility] Chloride 104 96 - 110 mmol/L LAB CHEMISTRY METHOD 08/15/2024 2:54 PM [facility] CO2 30 21 - 32 mmol/L LAB CHEMISTRY METHOD 08/15/2024 2:54 PM [facility] Anion Gap 8 3 - 11 LAB CHEMISTRY METHOD 08/15/2024 2:54 PM [facility] Glucose 75 70 - 100 mg/dL LAB CHEMISTRY METHOD 08/15/2024 2:54 PM [facility] BUN 20 5 - 25 mg/dL LAB CHEMISTRY METHOD 08/15/2024 2:54 PM [facility] Creatinine 0.87 0.70 - 1.30 mg/dL LAB CHEMISTRY METHOD 08/15/2024 2:54 PM EDT [facility] eGFR 92 >=60 mL/min/1. 73m2 LAB CHEMISTRY METHOD 08/15/2024 2:54 PM EDT [facility] Comment:Calculation based on the??Chronic Kidney Disease Epidemiology Collaboration (CKD-EPI) equation refit??without adjustment for race. BUN/Creatinine Ratio 23.0 LAB CHEMISTRY METHOD 08/15/2024 2:54 PM EDT [facility] Calcium 9.8 8.5 - 10.5 mg/dL LAB CHEMISTRY METHOD 08/15/2024 2:54 PM EDT [facility] Blood Venous blood specimen / Unknown Venipuncture / Unknown 08/15/2024 12:10 PM EDT 08/15/2024 12:10 PM EDT us Colin Christianson MD LAB BLOOD ORDERABLES Final Res ult Performing Organization Address [facility]/ZIP Co de Phone Number [facility] [address] [place] [address], [place] [phone] * Aspartate aminotransferase (08/15/2024 12:10 PM EDT) AST (SGOT) 16 10 - 42 unit/L LAB CHEMISTRY METHOD 08/15/2024 2:16 PM EDT [facility] Blood Venous blood specimen / Unknown Venipuncture / Unknown 08/15/2024 12:10 PM EDT 08/15/2024 12:10 PM EDT us Colin Christianson MD LAB BLOOD ORDERABLES Final Res ult [facility] [address] [place] [address], [place] [phone] * Alanine aminotransferase (08/15/2024 12:10 PM EDT) ALT (SGPT) 27 10 - 60 unit/L LAB CHEMISTRY METHOD 08/15/2024 2:54 PM EDT [facility] Blood Venous blood specimen / Unknown Venipuncture / Unknown 08/15/2024 12:10 PM EDT 08/15/2024 12:10 PM EDT us Colin Christianson MD LAB BLOOD ORDERABLES Final Res ult [facility] [address] [place] [address], documented in this encounter Visit Diagnoses Diagnosis Hearing loss of left ear, unspecified hearing loss type- Primary Stiffness of hip joint, unspecified laterality Essential hypertension Unspecified essential hypertension Screening PSA (prostate specific antigen) Special screening for malignant neoplasm of prostate documented in this encounter Additional Health Concerns Assessment Noted Time PHQ-9 Depression Total Score: 0 08/16/19 3:05 AM EDT documented as of this encounter Care Teams Accounts Receivable Collector Relationship Specialty Start Date End Date Colin Christianson MD [address] [place] [phone] PCP - General Internal Medicine 04/20/24 documented as of this encounter
--- OUTSIDE RECORDS SUMMARY | 2024-08-16 09:42 | XMS_ITS | Clinical Summary ---
Author Organization [facility] [employer] Address [address] [facility] [place] [address] Care Team Providers Care Manager Hardware Name Role Phone Unavailable Primary Care Provider [...] Adults 18 yrs or above (or HM Modifier)([facility]) 02/20/1970 Hepatitis C Virus Infection in Adolescents and Adults: Screening (or Modifier) ([facility]) 02/20/1970 SDMA Screening Reminder: Edna clark for all adults ([facility]) 02/20/1970 Tobacco Smoking Cessation: i n Adults excluding Women: Behavioral and Pharmacotherapy Interventions ([facility]) 02/20/1970 DTaP/Tdap/Td Vaccines ([facility]) (1 - Tdap) 02/20/1971 Lipid Screening: Every 5 yrs for Men aged 35+ (or HM Modifier) ([facility]) 1988 Colorectal Cancer Screening 45 -75 Yrs (or HM Modifier ) 02/20/1997 Colorectal Cancer: FLEXIBLE SIGMOIDOSCOPY Screening every 5 yrs 02/20/1997 Colorectal Cancer: Fecal Imm unochemical Test (FIT) Annually [facility] 02/20/1997 Colorectal Cancer: High-sens itivity gFOBT Screening Annually [facility] 02/20/1997 Colorectal Cancer: Stool Col oguard Screening every 3 yrs 02/20/1997 Colorectal Cancer:CT Colonography Screening every 5 yr s 02/20/1997 Pneumococcal Vaccination Scr eening: Patients 50+ yrs of age ([facility]) (1 of 1 - PCV) 02/20/2002 Zoster/Shingles Vaccine Seri es Screening: Adults aged 18+ yrs (or HM Modifiers)([facility]) (1 of 2) 02/20/2002 COVID-19 Vaccine Screening: Initial Series and Booster Status ([facility]) (2023- season) 2023 Flu Vaccination: Ages 65+: Y early High Dose Recommended (or Modifier)([facility]) 11/17/2024 RSV Vaccines (1 - 1-dose 75+ series) 02/20/2027 [employer] Not on file Insurance [facility]
== END 2024-08-16 09:12 | disposition home or self-care (01) ==
LOC: HO.BBR 09:11
PROVIDERS: PCP Internal Medicine; Visit Provider Internal Medicine
DX: Z13.89 Encounter for screening for other disorder (principal)

== ENCOUNTER 2024-11-15 11:09 | Outpatient (REF) | payer OTHER, MEDICARE, SELFPAY ==
--- OUTSIDE RECORDS SUMMARY | 2024-11-15 12:12 | XMS_ITS | Clinical Summary ---
Author Organization [facility] [employer] Address [address] [facility] [place] [address] Care Team Providers Care Superintendent Transmission Name Role Phone Unavailable Primary Care Provider [...] Adults 18 yrs or above (or HM Modifier)([facility]) 02/20/1970 Hepatitis C Virus Infection in Adolescents and Adults: Screening (or Modifier) ([facility]) 02/20/1970 SDDE Screening Reminder: Edna clark for all adults ([facility]) 02/20/1970 Tobacco Smoking Cessation: i n Adults excluding Women: Behavioral and Pharmacotherapy Interventions ([facility]) 02/20/1970 DTaP/Tdap/Td Vaccines ([facility]) (1 - Tdap) 02/20/1971 Colorectal Cancer Screening 45 -75 Yrs (or HM Modifier ) 02/20/1997 Colorectal Cancer: FLEXIBLE SIGMOIDOSCOPY Screening every 5 yrs 02/20/1997 Colorectal Cancer: Fecal Imm unochemical Test (FIT) Annually [facility] 02/20/1997 Colorectal Cancer: High-sens itivity gFOBT Screening Annually [facility] 02/20/1997 Colorectal Cancer: Stool Col oguard Screening every 3 yrs 02/20/1997 Colorectal Cancer:CT Colonography Screening every 5 yr s 02/20/1997 Pneumococcal Vaccination Scr eening: Patients 50+ yrs of age ([facility]) (1 of 1 - PCV) 02/20/2002 Zoster/Shingles Vaccine Seri es Screening: Adults aged 18+ yrs (or HM Modifiers)([facility]) (1 of 2) 02/20/2002 COVID-19 Vaccine Screening: Initial Series and Booster Status ([facility]) (2023- season) 2023 Flu Vaccination: Ages 65+: Y early High Dose Recommended (or Modifier)([facility]) 11/17/2024 RSV Vaccines (1 - 1-dose 75+ series) 02/20/2027 Medical Devices Not on file
--- OUTSIDE RECORDS SUMMARY | 2024-11-15 12:12 | XMS_ITS | Clinical Summary ---
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 For example, children's zoo caretaker or elderly care for an older adult? [...] AM EDT Office Visit Internal Medicine - [address] [phone] Colin Christianson MD [address] [place] [id number] Health Maintenance Due Date Last Done Comments Hepatitis C Screening 03/28/2022 COVID-19 Vaccine ( season) 2023 04/17/2023, 11/10/2021, 02/10/2021, Additional history exists Influenza Vaccine (#1) 2024 , 04/17/2023, 03/19/2022, Additional history exists Colorectal Cancer Screening: Colonoscopy 05/14/2025 05/12/2022 Falls Risk Assessment 08/15/2025 08/15/2024 Hypertension/CHF/CAD Annual BMP Blood Test 08/15/2025 08/15/2024, 02/15/2024 Medicare Annual Wellness Visit 08/15/2025 08/15/2024 Social Influencers of Health Screening 08/15/2025 08/15/2024 Cholesterol Screening (Lipid Panel) 08/15/2029 08/15/2024, 02/15/2024 DTaP,Tdap,and Td Vaccines (3 - Td or Tdap) 02/14/2034 02/15/2024, 08/09/2013 Pneumococcal Vaccine: 50+ Years Completed 07/14/2022 RSV Immunization Adult Patients Completed 04/17/2023 Zoster Vaccines Completed 11/17/2023, 08/20/2023 Depression Screening Completed 08/15/2024 HIB Vaccines Aged Out No longer eligi [...] Procedure Name Priority Date/Time Associated Diagnosis Comments BASIC METABOLIC PANEL Routine 08/15/2024 12:10 PM EDT Essential hypertension LIPID PANEL WITH REFLEX TO DIRECT LDL Routine 08/15/2024 12:10 PM EDT Essential hypertension from Last 3 Months or Most Recently Relevant to Health Maintenance Results * Lipid panel with reflex to direct LDL (08/15/2024 12:10 PM EDT) Cholesterol 134 0 - 200 mg/dL LAB CHEMISTRY METHOD 08/15/2024 2:54 PM EDT [facility] Triglycerides 93 0 - 150 mg/dL LAB CHEMISTRY METHOD 08/15/2024 2:54 PM EDT [facility] HDL 50 >=40 mg/dL LAB CHEMISTRY METHOD 08/15/2024 2:54 PM EDT [facility] LDL Calculated 65 0 - 100 mg/dL LAB CHEMISTRY METHOD 08/15/2024 2:54 PM EDT [facility] VLDL Cholesterol Naeem 18.6 mg/dL LAB CHEMISTRY METHOD 08/15/2024 2:54 PM EDT [facility] Non HDL Chol. (LDL+VLDL) 84 <145 mg/dL LAB CHEMISTRY METHOD 08/15/2024 2:54 PM EDT [facility] Chol/HDL Ratio 2.7 0.0 - 4.4 LAB CHEMISTRY METHOD 08/15/2024 2:54 PM EDT [facility] Blood Venous blood specimen / Unknown Venipuncture / Unknown 08/15/2024 12:10 PM EDT 08/15/2024 12:10 PM EDT us Colin Christianson MD LAB BLOOD ORDERABLES Final Res ult [facility] [address] [place] [address], * Basic metabolic panel (08/15/2024 12:10 PM EDT) Sodium 142 133 - 145 mmol/L LAB CHEMISTRY METHOD 08/15/2024 2:54 PM [facility] Potassium 4.3 3.5 - 5.5 mmol/L LAB CHEMISTRY METHOD 08/15/2024 2:54 PM [facility] Chloride 104 96 - 110 mmol/L LAB CHEMISTRY METHOD 08/15/2024 2:54 PM [facility] CO2 30 21 - 32 mmol/L LAB CHEMISTRY METHOD 08/15/2024 2:54 PM [facility] Anion Gap 8 3 - 11 LAB CHEMISTRY METHOD 08/15/2024 2:54 PM [facility] Glucose 75 70 - 100 mg/dL LAB CHEMISTRY METHOD 08/15/2024 2:54 PM [facility] BUN 20 5 - 25 mg/dL LAB CHEMISTRY METHOD 08/15/2024 2:54 PM [facility] Creatinine 0.87 0.70 - 1.30 mg/dL LAB CHEMISTRY METHOD 08/15/2024 2:54 PM [facility] eGFR 92 >=60 mL/min/1. 73m2 LAB CHEMISTRY METHOD 08/15/2024 2:54 PM [facility] Comment:Calculation based on the Chronic Kidney Disease Epidemiology Collaboration (CKD-EPI) equation refit without adjustment for race. BUN/Creatinine Ratio 23.0 LAB CHEMISTRY METHOD 08/15/2024 2:54 PM EDT [facility] Calcium 9.8 8.5 - 10.5 mg/dL LAB CHEMISTRY METHOD 08/15/2024 2:54 PM EDT [facility] Blood Venous blood specimen / Unknown Venipuncture / Unknown 08/15/2024 12:10 PM EDT 08/15/2024 12:10 PM EDT us Colin Christianson MD LAB BLOOD ORDERABLES Final Res ult [facility] [address] [place] [address], [place] [phone] from Last 3 Months or Most Recently Relevant to Health Maintenance Insurance MEDICARE [facility] Care Teams Millinery Department Manager Relationship Specialty Start Date End Date Colin Christianson MD [address] [place] [address] PCP - General Internal Medicine 04/20/24
== END 2024-11-15 11:10 | disposition home or self-care (01) ==
LOC: HO.BBR 11:09
PROVIDERS: PCP Internal Medicine; Visit Provider Internal Medicine
DX: Z13.89 Encounter for screening for other disorder (principal)

== ENCOUNTER 2025-02-15 09:06 | Outpatient (REF) | payer OTHER, MEDICARE, SELFPAY ==
--- OUTSIDE RECORDS SUMMARY | 2025-02-15 10:14 | XMS_ITS | Clinical Summary ---
Author Organization [facility] [id number] [employer] Address [address] [facility] [place] [address] Care Team Providers Care Lens Fabricating Machine Tender Name Role Phone Unavailable Primary Care Provider [...] Adults 18 yrs or above (or HM Modifier)([facility]) 02/20/1970 Hepatitis C Virus Infection in Adolescents and Adults: Screening (or Modifier) ([facility]) 02/20/1970 SDWI Screening Reminder: Edna clark for all adults ([facility]) 02/20/1970 Tobacco Smoking Cessation: i n Adults excluding Women: Behavioral and Pharmacotherapy Interventions ([facility]) 02/20/1970 DTaP/Tdap/Td Vaccines ([facility]) (1 - Tdap) 02/20/1971 Colorectal Cancer Screening 45 -75 Yrs (or HM Modifier ) 02/20/1997 Colorectal Cancer: FLEXIBLE SIGMOIDOSCOPY Screening every 5 yrs 02/20/1997 Colorectal Cancer: Fecal Imm unochemical Test (FIT) Annually [facility] 02/20/1997 Colorectal Cancer: High-sens itivity gFOBT Screening Annually [facility] 02/20/1997 Colorectal Cancer: Stool Col oguard Screening every 3 yrs 02/20/1997 Colorectal Cancer:CT Colonography Screening every 5 yr s 02/20/1997 Pneumococcal Vaccination Scr eening: Patients 50+ yrs of age ([facility]) (1 of 1 - PCV) 02/20/2002 Zoster/Shingles Vaccine Seri es Screening: Adults aged 18+ yrs (or HM Modifiers)([facility]) (1 of 2) 02/20/2002 Flu Vaccination: Ages 65+: Y early High Dose Recommended (or Modifier)([facility]) 11/17/2024 COVID-19 Vaccine Screening: Initial Series and Booster Status ([facility]) (2023- season) 2024 RSV Vaccines (1 - 1-dose 75+ series) 02/20/2027 Medical Devices Not on file
== END 2025-02-15 09:07 | disposition home or self-care (01) ==
LOC: HO.BBR 09:06
PROVIDERS: PCP Internal Medicine; Visit Provider Internal Medicine
DX: Z13.89 Encounter for screening for other disorder (principal)